=== PATIENT | female | born 1940 | race Caucasian/White ===

== ENCOUNTER 2022-10-10 10:27 | Emergency (ER) | payer MEDICARE ==
[~2022-10-10] VITALS: Wt 57.2 kg
[~2022-10-10 10:27] MED LIST: AMLODIPINE10 MG; ARICEPT10 M1 PO; ATORVASTATIN CA80 M1 PO; Avapro300 MG PO; CARBIDOPA-LEVO1 EAC6 PO; CITALOPRAM20 MG PO; CLONIDINE0.1 MG PO; CRESTOR10 MG; DONEPEZIL HYDROC5 MG PO; K-TAB20 MEQ PO; KEFLEX250 MG PO; LASIX20 MG; LASIX20 MG PO; LEVOFLOXACIN500 MG PO; LIPITOR20 MG PO; LOSARTAN POTAS100 M1 PO; MECLIZINE25 MG; METOPROLOL SR50 MG; NEURONTIN100 MG PO; PAROXETINE20 MG; PRILOSEC20 MG; PRINIVIL40 MG; SYNTHROID,LEVO75 MCG
[2022-10-10] MEDS ORDERED: HEARTBURN RELIE20 MG PO (10:45)
[2022-10-10] MEDS ORDERED: CLOPIDOGREL75 MG PO (10:46)
[2022-10-10] MEDS ORDERED: LASIX40 MG PO (10:47)
[2022-10-10 11:10] LABS: BASO % 0.2 % (0.0-1.0); EOS % 0.3 % (1.0-4.0); HEMATOCRIT 41.1 % (37.0-47.0); LYMPH # 1.1 10*3/uL (1.3-4.4); LYMPH % 18.7 % (27.0-41.0); MEAN CORPUSCULAR HGB 32.8 pg (27.0-31.0); MEAN CORPUSCULAR HGB CONC 32.8 g/dl (33.0-37.0); MEAN PLATELET VOLUME 11.1 fl (9.6-12.3); MONO # 0.5 10*3/uL (0.1-1.0); MONO % 8.7 % (3.0-9.0); NEUT # 4.2 10*3/uL (2.3-7.9); NEUT % 71.9 % (47.0-73.0); PLATELET COUNT AUTOMATED 165 10*3/uL (130-400); RED BLOOD COUNT 4.11 10*6/uL (4.10-5.10); RED CELL DISTRI WIDTH 13.5 % (0-14.5); WHITE BLOOD COUNT 5.9 10*3/uL (4.8-10.8)
[2022-10-10 11:21] LABS: ACT PARTIAL THROMBO TIME 29.7 SECONDS (20.0-32.1); INTERNATIONAL NORM RATIO 1.1 (2.0-3.5)
[2022-10-10 11:26] LABS: ALKALINE PHOSPHATASE 90 U/L (46-116); BUN 12 mg/dl (9-23); CHLORIDE 105 mmol/L (98-107); CREATININE 1.02 mg/dL (0.55-1.02); LIPASE 37 U/L (12-53); POTASSIUM 4.1 mmol/L (3.4-5.1); SGPT/ALT 25 U/L (10-49); SODIUM 141 mmol/L (136-145); TOTAL PROTEIN 6.5 gm/dL (6.0-8.0)
[2022-10-10 12:11] LABS: BILIRUBIN Negative (Negative); BLOOD Negative (Negative); CLARITY Clear (Clear); COLOR Yellow (Yellow); GLUCOSE Negative (Negative); KETONE Trace (Negative); LEUKO ESTERASE Negative (Negative); NITRITE Negative (Negative); PH 7.5 (4.5-8.0); SPECIFIC GRAVITY 1.025 (1.001-1.030)
[2022-10-10 12:36] LABS: BACTERIA 1+; MUCOUS 1+
[2022-10-10] MEDS ORDERED: DIFLUCAN150 MG PO (13:24)
[2022-10-10] MEDS ORDERED: PYRIDIUM200 M1 PO (13:24)
[2022-10-10] MEDS ORDERED: CEPHALEXIN500 M1 PO (13:24)
== END 2022-10-10 15:00 | disposition home or self-care (01) ==
LOC: ED 10:27
PROVIDERS: Family Medicine
DX: N39.0 Urinary tract infection, site not specified (principal); Z98.51 Tubal ligation status; Z98.890 Other specified postprocedural states